=== PATIENT | male | born 1985 | race Caucasian/White ===

== ENCOUNTER 2019-05-16 | Emergency (ER) | payer SELFPAY ==
[~2019-05-16] MED LIST: BACTRIM DS1 TAB PO; NO HOME MEDS
[2019-05-16 15:28] LABS: HEMATOCRIT 47.6 % (39.0-50.0); HEMOGLOBIN 15.6 g/dl (14.0-18.0); IMMATURE GRANULOCYTES 0.4 % (0.0-5.0); MEAN CELL VOLUME 89.5 fL CALC (80.0-100.0); MEAN CORPUSCULAR HGB 29.3 pG CALC (26.0-32.0); MEAN CORPUSCULAR HGB CONC 32.8 g/L CALC (32.0-36.0); NEUT# 4.35 thou/uL (1.82-7.42); RED BLOOD COUNT 5.32 mill/uL (4.70-6.10); RED CELL DISTRI WIDTH 12.7 % (11.5-15.5)
[2019-05-16] MEDS ORDERED: DOXYCYCL HYC100 M4 PO (15:44)
[2019-05-16] MEDS ORDERED: PROAIR HFA108 MCG/AC PO ×2 (15:44)
[2019-05-16] MEDS ORDERED: PREDNISONE50 MG PO (15:44)
[2019-05-16 15:45] LABS: ALBUMIN 4.1 g/dL (3.2-5.0); ALKALINE PHOSPHATASE 62 u/l (38-126); ANION GAP 13 (6-22 (CALC)); BILIRUBIN, TOTAL 0.7 mg/dL (0.0-1.4); BUN 15 mg/dL (9-20); BUN/CREATININE RATIO 12 (12-20 (CALC)); CARBON DIOXIDE 26 mmol/l (22-30); CHLORIDE 105 mmol/l (95-108); CREATININE 1.3 mg/dL (0.7-1.3); GFR > 60 ML/MIN (>=60 (CALC)); GFR FOR AFR.AMER. > 60 ML/MIN (>=60 (CALC)); POTASSIUM 4.7 mmol/l (3.5-5.1); SGOT/AST 29 u/l (17-59); SODIUM 140 mmol/l (137-146); TOTAL PROTEIN 7.4 g/dL (6.3-8.2)
== END 2019-05-16 16:10 | disposition home or self-care (01) | DRG 203 ==
PROVIDERS: Family Medicine
DX: J40 Bronchitis, not specified as acute or chronic (principal); F17.220 Nicotine dependence, chewing tobacco, uncomplicated

== ENCOUNTER 2019-10-13 07:27 | Emergency (ER) | payer SELFPAY ==
[~2019-10-13] VITALS: Ht 180.3 cm; Wt 109.0 kg
[~2019-10-13 07:27] MED LIST changes: +DOXYCYCL HYC100 M4 PO; +PREDNISONE50 MG PO; +PROAIR HFA108 MCG/AC PO
[2019-10-13 08:07] LABS: HEMATOCRIT 46.5 % (39.0-50.0); HEMOGLOBIN 15.3 g/dl (14.0-18.0); IMMATURE GRANULOCYTES 0.4 % (0.0-5.0); MEAN CELL VOLUME 88.6 fL CALC (80.0-100.0); MEAN CORPUSCULAR HGB 29.1 pG CALC (26.0-32.0); MEAN CORPUSCULAR HGB CONC 32.9 g/dL CAL (32.0-36.0); NEUT# 6.39 thou/uL (1.82-7.42); RED BLOOD COUNT 5.25 mill/uL (4.70-6.10); RED CELL DISTRI WIDTH 12.3 % (11.5-15.5)
[2019-10-13 08:21] LABS: URINE BILIRUBIN - DIPSTICK NEGATIVE (NEGATIVE); URINE BLOOD DIPSTICK NEGATIVE (NEGATIVE); URINE COLOR YELLOW; URINE GLUCOSE - DIPSTICK NEGATIVE (NEGATIVE); URINE KETONE NEGATIVE (NEGATIVE); URINE LEUK ESTERASE NEGATIVE (NEGATIVE); URINE NITRITE - DIPSTICK NEGATIVE (Negative); URINE PH 5.5 (4.5-8.0); URINE PROTEIN - DIPSTICK NEGATIVE (NEG-TRACE); URINE SPECIFIC GRAVITY 1.025; URINE UROBILINOGEN - DIPSTICK 0.2 E.U./dL (0.2)
[2019-10-13 08:22] LABS: ALBUMIN 3.9 g/dL (3.2-5.0); ALKALINE PHOSPHATASE 62 u/l (38-126); BUN 18 mg/dL (9-20); BUN/CREATININE RATIO 14 (12-20 (CALC)); CHLORIDE 100 mmol/l (95-108); CREATININE 1.3 mg/dL (0.7-1.3); GFR > 60 ML/MIN (>=60 (CALC)); GFR FOR AFR.AMER. > 60 ML/MIN (>=60 (CALC)); POTASSIUM 3.9 mmol/l (3.5-5.1); SGOT/AST 23 u/l (17-59); SODIUM 133 mmol/l (137-146); TOTAL PROTEIN 7.4 g/dL (6.3-8.2)
[2019-10-13 08:28] LABS: ANION GAP 17 (6-22 (CALC)); CARBON DIOXIDE 20 mmol/l (22-30)
[2019-10-13] MEDS ORDERED: BENADRYL 50MG C50 MG PO ×2 (09:37)
[2019-10-13] MEDS ORDERED: EPIPEN 2-P0.3 MG/0.3 IM ×2 (09:37)
[2019-10-13] MEDS ORDERED: MEDDOSEPAK PO ×2 (09:37)
[2019-10-13 09:56] VITALS: BP 142/72
== END 2019-10-13 10:11 | disposition home or self-care (01) | DRG 916 ==
LOC: ED 07:27
DX: T78.2XXA Anaphylactic shock, unspecified, initial encounter (principal); F17.200 Nicotine dependence, unspecified, uncomplicated; Z20.828 Contact with and (suspected) exposure to other viral communicable diseases

== ENCOUNTER 2020-02-02 15:04 | Emergency (ER) | payer SELFPAY ==
[~2020-02-02] VITALS: Ht 180.3 cm; Wt 97.0 kg
[~2020-02-02 15:04] MED LIST changes: +BENADRYL 50MG C50 MG PO; +EPIPEN 2-P0.3 MG/0.3 IM; +MEDDOSEPAK PO
[2020-02-02] MEDS ORDERED: VENTOLIN HFA IN (17:38)
[2020-02-02 17:52] VITALS: BP 162/75
== END 2020-02-02 17:53 | disposition home or self-care (01) | DRG 153 ==
LOC: ED 15:04
DX: J06.9 Acute upper respiratory infection, unspecified (principal); F17.220 Nicotine dependence, chewing tobacco, uncomplicated; Z20.828 Contact with and (suspected) exposure to other viral communicable diseases

== ENCOUNTER 2020-09-17 09:55 | Observation (INO) | payer SELFPAY ==
[~2020-09-17] VITALS: Ht 180.3 cm; Wt 119.0 kg
[~2020-09-17 09:55] MED LIST changes: +VENTOLIN HFA IN
--- NOTE | 2020-09-17 10:15 | NUR ---
PT TO ROOM AMBLATORY FROM WAITING ROOM.
--- NOTE | 2020-09-17 10:47 | NUR ---
PT RESTING COMFORTABLE IN BED, SLIGHTLY AUDIBLE WHEEZES, STATES HE IS FEELING MUCH BETTER BUT STILL TIGHT IN THE LUNGS
[2020-09-17 10:50] LABS: HEMOGLOBIN 15.8 g/dl (14.0-18.0); IMMATURE GRANULOCYTES 0.4 % (0.0-5.0); MEAN CELL VOLUME 92.6 fL CALC (80.0-100.0); MEAN CORPUSCULAR HGB 29.9 pG CALC (26.0-32.0); MEAN CORPUSCULAR HGB CONC 32.2 g/dL CAL (32.0-36.0); NEUT# 3.03 thou/uL (1.82-7.42); RED BLOOD COUNT 5.29 mill/uL (4.70-6.10); RED CELL DISTRI WIDTH 13.2 % (11.5-15.5)
--- NOTE | 2020-09-17 11:00 | NUR ---
DULILIAB INPROGRESS, 2 LITERS O2 VIA NC PLACED BACKON BY RT. PATIENT STATES ARON IS FEELING BETTER AND FEELS HIS AIRWAY OPENING UP. CLOSELY MONITORING.
[2020-09-17 11:10] LABS: ACT PARTIAL THROMBO TIME 22.8 SECONDS (20.0-32.5); ALBUMIN 4.2 g/dL (3.2-5.0); ALKALINE PHOSPHATASE 71 u/l (38-126); BILIRUBIN, TOTAL 0.7 mg/dL (0.0-1.4); BUN 14 mg/dL (9-20); BUN/CREATININE RATIO 13 (12-20 (CALC)); CHLORIDE 101 mmol/l (95-108); CREATININE 1.1 mg/dL (0.7-1.3); GFR > 60 ML/MIN (>=60 (CALC)); GFR FOR AFR.AMER. > 60 ML/MIN (>=60 (CALC)); INTERNATIONAL NORMALIZED RATIO 0.9 RATIO (0.7-1.3); LIPASE 95 u/l (23-300); PROTHROMBIN TIME 9.5 SECONDS (9.0-12.5); SODIUM 138 mmol/l (137-146); TOTAL PROTEIN 7.9 g/dL (6.3-8.2)
[2020-09-17 11:18] LABS: ANION GAP 15 (6-22 (CALC)); CARBON DIOXIDE 27 mmol/l (22-30); POTASSIUM 4.7 mmol/l (3.5-5.1); SGOT/AST 44 u/l (17-59)
--- NOTE | 2020-09-17 11:42 | NUR ---
PATIENT RESTING, LIGHT DIMMED FOR COMFORT, CALL CARDENAS IN REACH. PATIENT STATES HE IS FEELING MUCH BETTER THAN HE WAS.CONTINUING TO MONITOR
--- NOTE | 2020-09-17 12:24 | NUR ---
ATTEMPT TO CALL REPORT AT THIS TIME.
--- NOTE | 2020-09-17 12:25 | NUR ---
NURSE BERRY STATES SHE WILL NOT TAKE REPORT SINCE THERE ARE NO ADMISSION ORDERS.
--- NOTE | 2020-09-17 12:30 | NUR ---
ORDERS BEING PLACED, REPORT CALLED TO BERRY IN SBAR FORMAT.
--- NOTE | 2020-09-17 12:38 | NUR ---
TELEMETRY APPLIED AND PATIENT TAKEN TO ROOM 268 BY NURSE.
--- NOTE | 2020-09-17 13:21 | NUR ---
REPORT RECEIVED FORM MIA IN ED, PT TRANSPORTED TO UNIT VIA W/C @ 1239, ALERT AND ORIENTED X 4, ORIENTED TO ROOM AND CALL CARDENAS. DENIES PAIN AT THIS TIME BUT STATES HE HAD MIDSTERNAL CHEST PAIN EARLIER, O2 @ 2L IN PLACE VIA NC, TELE MOITOR IN PLACE, IVF MG INFUSING @ 25ML/HR TO SITE RAC # 20 CATHETER, CALL CARDENAS IN REACH AND BED LOCKED IN LOWEST POSITIOIN.
[2020-09-17 13:31] VITALS: BP 136/86
[2020-09-17 15:18] VITALS: BP 132/81
--- NOTE | 2020-09-17 16:09 | NUR ---
PT STATES IS S FEELING SLIGHTLY BETTER, NEW ORDERS WRITTEN BY MEDICAL CARE TEAM, PAIN CONCERNS BEING MONITORED AND ADDRESSED, PT IS RESTING IN [place] POSITION AT THIS TIME, FAMILY MEMBER VISITING, WILL CONTINUE TO MONITOR.
--- NOTE | 2020-09-17 16:11 | NUR ---
SLEEPING IN SUPINE POSITION AT THIS TIME, BREATHING EVEN AND NON-LABORED, NO SIGN DISCOMFORT, CALL CARDENAS IN REACH.
[2020-09-17 19:00] VITALS: BP 131/80
--- NOTE | 2020-09-17 20:45 | NUR ---
PT RESTING QUIETLY IN BED. DENIES SOB AT THIS TIME. SCATTERED WHEZZING THOUHGOUT ALL LUNG GALINDO. DENIES COMPLAINTS AND DENIES PAIN AT THIS TIME. ASSESSMENTS COMPLETED, PLEASE SEE DOCUMENTATION. SAFETY PRECAUTIONS IN PLACE. BED IN LOWEST POSITION, CALL LIGHT WITHIN REACH
[2020-09-18] VITALS: BP 140/78
--- NOTE | 2020-09-18 00:30 | NUR ---
PT SITTING UP IN BED WATCHING TV. NO COMPLAINTS VOICED, DENIES PAIN AND DENIES ANY NEEDS AT THIS TIME. NO SOB NOTED, BREATHING EVEN AND UNLABORED. O2 REMAINS AT 2L VIA NC. PT TOLERATING WELL. SAFETY PRECAUTIONS IN PLACE, WILL MONITOR
[2020-09-18 04:00] VITALS: BP 120/71
[2020-09-18 05:32] LABS: HEMATOCRIT 45.7 % (39.0-50.0); HEMOGLOBIN 14.9 g/dl (14.0-18.0); MEAN CORPUSCULAR HGB CONC 32.6 g/dL CAL (32.0-36.0); RED BLOOD COUNT 4.97 mill/uL (4.70-6.10); RED CELL DISTRI WIDTH 13.4 % (11.5-15.5)
[2020-09-18 05:55] LABS: ANION GAP 12 (6-22 (CALC)); BUN 15 mg/dL (9-20); BUN/CREATININE RATIO 18 (12-20 (CALC)); CARBON DIOXIDE 24 mmol/l (22-30); CHLORIDE 104 mmol/l (95-108); CREATININE 0.8 mg/dL (0.7-1.3); GFR > 60 ML/MIN (>=60 (CALC)); GFR FOR AFR.AMER. > 60 ML/MIN (>=60 (CALC)); MAGNESIUM 2.2 mg/dL (1.6-2.3); POTASSIUM 4.5 mmol/l (3.5-5.1); SODIUM 135 mmol/l (137-146)
--- NOTE | 2020-09-18 05:56 | NUR ---
PT RESTING QUIETLY THIS AM WITH HIS EYES CLOSED. UPON ADMINSTRATION OF SOLU-MEDROL NOTED THAT IV SITE WAS PARTIALLY OUT OF VEIN AND WAS NOT FLUSHING. ATTEMPTED TO REPOSITION SITE WITHOUT SUCCESS. NEW IV SITE STARTED TO JACLYN #20-SALINE LOCKED. FLUSHES EASILY. PT DENIES PAIN OR BURNING AT NEW SITE. SOLU-MEDROL ADMINSTERED WITHOUT DIFFICULTY. SAFETY PRECAUTIOS IN PLACE, WILL CONTINUE TO MONITOR
--- NOTE | 2020-09-18 06:46 | NUR ---
PT RSTING COMFORTABLY. NAD. VSS. REFUSED PRN BRONCHODILATOR THERAPY AT THIS TIME. TOPOGRAPHICAL ENGINEER TO MONITOR.
[2020-09-18 07:36] VITALS: BP 149/65
--- NOTE | 2020-09-18 07:36 | NUR ---
PT SLEEPING IN BED. AWAKENED TO COMPLETE ASSESSMENT. A&O X4. O2 VIA NC @2L IN PLACE. PT DENIES HOME USE. WHEEZING HEARD BOTH POSTERIORLY AND ANTERIORLY THROUGHOUT ALL LUNG BASES UPON AUSCULTATION. PT REPORTS IMPROVEMENT COMPARED TO YESTERDAY. #20 JACLYN HEALTHY AND PATENT. LOKIE DRIVER IN PLACE. DENIES ANY PAIN AT THIS TIME. ACTIVE BOWEL SOUNDS X4 QUADS. NO NEEDS AT THIS TIME. ASSESSMENT COMPLETED. DISCUSSED POC. CALL LIGHT WITHIN REACH.
--- NOTE | 2020-09-18 09:50 | NUR ---
DR ARGUETA AND Nasreen HOOKER NANOTECHNOLOGY ENGINEERING TECHNICIAN AT BEDSIDE DISCUSSING POC
--- NOTE | 2020-09-18 10:00 | NUR ---
PT WEANED OFF OF O2, CURRENTLY ROOM AIR 93-94%. WILL MONITOR FOR OXYGENATION NEEDS. CALL LIGHT WITHIN REACH.
--- NOTE | 2020-09-18 11:03 | NUR ---
EDUCATION GIVEN ON ADVAIR INHALER. PT DEMONSTRATES PROPER USE OF DEVICE. CALL LIGHT WITHIN REACH.
[2020-09-18 11:21] VITALS: BP 153/89
[2020-09-18 15:43] VITALS: BP 142/76
[2020-09-18] MEDS ORDERED: SINGULAIR10 MG PO (16:43)
[2020-09-18] MEDS ORDERED: SYMBICORT1 AE1 IN (16:43)
--- NOTE | 2020-09-18 16:45 | NUR ---
PT UPDATED ON D/C PLANNING FOR TOMORROW AND INHALER USE. PT AGREEABLE. WHEEZING STILL HEARD POSTERIORLY, IMPROVED ANTERIORLY. CALL LIGHT WITHIN REACH.
[2020-09-18] MEDS ORDERED: PREDNISONE10 MG PO (16:47)
[2020-09-18 19:00] VITALS: BP 152/83
--- NOTE | 2020-09-18 20:00 | NUR ---
PT SITTING UP IN BED ON HIS PHONE UPON ASSESSMENT. ALL ASSESSMENTS COMPLETE, SEE DCUMENTATION. BREATHING EVEN AND UNLABORED. UPPER AND RIGHT MIDDLE LOBES ARE CTA, BASES WITH EXPIRATORY WHEEZES. IV REAMINS TO JACLYN, FLUSHES EASILY. SFETY PRECAUTIONS IN PLACE, WILL MONITOR
--- NOTE | 2020-09-19 00:20 | NUR ---
PT RESTING QUIETLY AT THIS TIME. BREATHING EVEN AND UNLABORED. SLIGHT WHEEZING CONTINUES TO LUNG BASES, ALL OTHER LOBES ARE CTA. NO COMPLAINTS VOICED. DENIES PAIN. SAFETY PREAUTIONS REMAIN IN PLACE. WILL MONITOR
[2020-09-19 03:50] VITALS: BP 146/74
--- NOTE | 2020-09-19 04:14 | NUR ---
PT CONTINUES TO REST CLAMLY IN BED WITH HIS EYES CLOSED. NO COMPLAINTS VOICED. NO S/S OF DISTRESS NOTED. SAFETY PRECAUTIONS IN PLACE. WILL MONITOR
[2020-09-19 07:20] VITALS: BP 128/81
--- NOTE | 2020-09-19 07:20 | NUR ---
PATIENT LAYING IN BED AT THIS TIME. PATIENT DENEIS ANY NEEDS CURRENTLY. PATIENT GASPER ANY PAIN. LUNG GALINDO CLEAR THROUGH OUT ALL GALINDO. SENIOR TELECOMMUNICATIONS ENGINEER DONE SEE INTERVENITONS. PATIENT IS ALERT AND ORIENTED X 3 SIDERAILS ARE UP X 2 CALL LIGHT AND PERSONAL BELONGINGS WITHIN REACH. PATIENT DOES NOT EXHIBIT ANY COUGHING AT THIS TIME.
--- NOTE | 2020-09-19 10:50 | NUR ---
PATIENT D/C AT THIS TIME PATIENT VERBALIZES UNDERSTANDING OF D/C INSTRUCTIONS AT THIS TIME.
--- NOTE | 2020-09-19 10:56 | NUR ---
Discharge instructions given. Patient verbalizes understanding of same. Discharged in stable condition via Wheelchair to Home with *Other. All belongings sent with pt.
== END 2020-09-19 10:56 | disposition home or self-care (01) | DRG 203 ==
LOC: ED 09:55 → ED-I 12:01 → ED 12:06 → MS2 12:07
PROVIDERS: Nurse Practitioner; ADMIT Internal Medicine; ATTEND Internal Medicine
DX: J45.42 Moderate persistent asthma with status asthmaticus (principal); R09.02 Hypoxemia; M10.9 Gout, unspecified; F17.200 Nicotine dependence, unspecified, uncomplicated; Z20.822 Contact with and (suspected) exposure to COVID-19
CPT/HCPCS: G0378; J1650; J3475

== ENCOUNTER 2021-06-14 01:19 | Emergency (ER) | payer SELFPAY ==
[~2021-06-14] VITALS: Ht 180.3 cm; Wt 80.0 kg
[~2021-06-14 01:19] MED LIST changes: +PREDNISONE10 MG PO; +SINGULAIR10 MG PO; +SYMBICORT1 AE1 IN
[2021-06-14] MEDS ORDERED: COLCHICINE0.6 M2 PO (01:44)
[2021-06-14] MEDS ORDERED: STERAPRED DS10 MG PO (01:44)
[2021-06-14 01:56] VITALS: BP 135/87
== END 2021-06-14 02:06 | disposition home or self-care (01) | DRG 607 ==
LOC: ED 01:19
DX: L29.9 Pruritus, unspecified (principal); R22.1 Localized swelling, mass and lump, neck; T39.395A Adverse effect of other nonsteroidal anti-inflammatory drugs [NSAID], initial encounter; J45.909 Unspecified asthma, uncomplicated; M10.9 Gout, unspecified; M25.572 Pain in left ankle and joints of left foot; M10.072 Idiopathic gout, left ankle and foot

== ENCOUNTER 2021-06-14 03:25 | Emergency (ER) | payer SELFPAY ==
[~2021-06-14] VITALS: Ht 180.3 cm; Wt 117.0 kg
[~2021-06-14 03:25] MED LIST changes: +COLCHICINE0.6 M2 PO; +STERAPRED DS10 MG PO
[2021-06-14 06:10] VITALS: BP 140/58
== END 2021-06-14 06:10 | disposition home or self-care (01) | DRG 554 ==
LOC: ED 03:25
DX: M10.072 Idiopathic gout, left ankle and foot (principal); J45.909 Unspecified asthma, uncomplicated

== ENCOUNTER 2021-06-24 20:12 | Emergency (ER) | payer SELFPAY ==
[~2021-06-24] VITALS: Ht 177.8 cm; Wt 111.0 kg
[2021-06-24 23:25] VITALS: BP 138/88
== END 2021-06-24 23:25 | disposition home or self-care (01) | DRG 605 ==
LOC: ED 20:12
PROC: 0HQ0XZZ Repair Scalp Skin, External Approach (ICD-10-PCS; principal; 2021-06-24)
DX: S01.01XA Laceration without foreign body of scalp, initial encounter (principal); J45.909 Unspecified asthma, uncomplicated; M10.9 Gout, unspecified; W22.09XA Striking against other stationary object, initial encounter; Y92.009 Unspecified place in unspecified non-institutional (private) residence as the place of occurrence of the external cause

== ENCOUNTER 2022-06-12 01:57 | Emergency (ER) | payer SELFPAY ==
[~2022-06-12] VITALS: Ht 177.8 cm; Wt 108.2 kg
[2022-06-12 02:31] VITALS: BP 139/95
[2022-06-12 02:45] VITALS: BP 146/96
[2022-06-12 03:00] VITALS: BP 151/94
[2022-06-12 03:16] VITALS: BP 126/93
[2022-06-12 03:31] VITALS: BP 154/90
[2022-06-12] MEDS ORDERED: KEFLEX500 MG PO (03:31)
[2022-06-12 03:38] VITALS: BP 154/90
== END 2022-06-12 03:55 | disposition home or self-care (01) | DRG 914 ==
LOC: ED 01:57
DX: S97.112A Crushing injury of left great toe, initial encounter (principal); S90.212A Contusion of left great toe with damage to nail, initial encounter; F17.220 Nicotine dependence, chewing tobacco, uncomplicated; W31.82XA Contact with other commercial machinery, initial encounter; Y93.89 Activity, other specified; Y92.89 Other specified places as the place of occurrence of the external cause; Y99.0 Civilian activity done for income or pay

== ENCOUNTER 2022-09-02 18:22 | Emergency (ER) | payer SELFPAY ==
[~2022-09-02] VITALS: Ht 177.8 cm; Wt 81.0 kg
[~2022-09-02 18:22] MED LIST changes: +KEFLEX500 MG PO
[2022-09-02] MEDS ORDERED: KEFLEX500 MG PO (19:20)
[2022-09-02] MEDS ORDERED: ULTRAM50 MG PO (19:27)
[2022-09-02 19:29] VITALS: BP 143/106
== END 2022-09-02 19:34 | disposition home or self-care (01) | DRG 603 ==
LOC: ED 18:22
DX: L03.011 Cellulitis of right finger (principal); J45.909 Unspecified asthma, uncomplicated; M10.9 Gout, unspecified